=== PATIENT | female | born 1950 | race Caucasian/White ===

== ENCOUNTER 2021-06-08 17:52 | Emergency (ER) | payer MEDICARE ==
[2021-06-08 18:00] VITALS: BP 163/53
--- NOTE | 2021-06-08 18:00 | ED Physician Documentation ---
PD HPI UPPER EXT INJURY - Stated complaint Stated Complaint: RT FINGER LAC - Chief complaint Chief Complaint: Laceration - History obtained from History obtained from: Patient - History of Present Illness Location: Right, Finger (little finger lac/avulsion from cheese mandolin, with wound not wanting to stop bleeding. Bandaid at home and here for eval.) Where injury occurred: Home Timing - onset: How many minutes ago (30), Today Timing - details: Abrupt onset, Still present (still seemed to be bleeding through the bandaid.) Associated symptoms: No: Weakness, Numbness Contributing factors: No: Anticoagulated Similar symptoms before: Has not had sx before Review of Systems Skin: reports: Laceration (s) Neurologic: denies: Focal weakness, Numbness PD PAST MEDICAL HISTORY - Past Medical History Cardiovascular: None Respiratory: None - Allergies Allergies/Adverse Reactions: Allergies Allergy/AdvReac Type Severity Reaction Status Date / Time No Known Drug Allergies Allergy Verified 06/08/21 18:00 PD ED PE NORMAL - Vitals Vital signs reviewed: Yes - General General: Alert and oriented X 3, Well developed/nourished - Derm Derm: Normal color, Warm and dry - Extremities Extremities: Other (The right little finger distal phalanx palmar aspect with a 3 mm x 1 cm partial-thickness avulsion. No bleeding at this time and no foreign bodies. Does not involve the nailbed.) - Neuro Neuro: No motor deficit, No sensory deficit Results - Vitals Vitals: Vital Signs - 24 hr 06/08/21 17:56 Temperature 36.3 C L Heart Rate 58 L Respiratory 18 Rate Blood Pressure 163/53 H O2 Saturation 97 Oxygen O2 Source Room air Procedures - Laceration (location) right little finger Length in cm: 1 Wound type: Linear Neurovascular status: Sensory intact, Motor intact Tendon involvement: Tendon intact Wound preparation: Wound explored, To the base Skin layer closure: Dermabond, Steri strips (The wound was partial-thickness and not very wide. It was an avulsion but the edges could still be brought together a bit. Benzoin and Steri-Strips were used and then coated over with Dermabond. She states it did burn for a little bit and then improved.) Other: Tetanus booster given PD MEDICAL DECISION MAKING - ED course Complexity details: considered differential, d/w patient Departure - Departure Disposition: 01 Home, Self Care Clinical Impression: Laceration of little finger Qualifiers: Encounter type: initial encounter Damage to nail status: without damage Foreign body presence: without foreign body Laterality: right Qualified Code(s): S61.216A - Laceration without foreign body of right little finger without damage to nail, initial encounter Condition: Stable Record reviewed to determine appropriate education?: Yes Instructions: ED Avulsion Dermal Comments: The Steri-Strips and glue on it will help hold the edges a low bit closer for less bleeding. They should fall off on their own after few days. At that point typical wound care with cleaning soap and water and ointment. Recheck if signs of infection. Tylenol or ibuprofen if needed for pains. You were given a tetanus booster here.
[2021-06-08] MEDS ORDERED: ACETAMINOPHEN 325 MG TABLET PO STA (18:18)
[2021-06-08] MEDS ORDERED: LIDOCAINE OINTMENT 5% 35.44 GM TUBE TOP STA (18:18)
[2021-06-08] MEDS ORDERED: TETANUS/DIPHTHERIA/PERTUSSIS 0.5 ML SYRINGE IM ONE (18:18)
== END 2021-06-08 18:40 | disposition home or self-care (01) ==
LOC: ED 17:52
DX: S61.216A Laceration without foreign body of right little finger without damage to nail, initial encounter (principal); W27.4XXA Contact with kitchen utensil, initial encounter; Y92.009 Unspecified place in unspecified non-institutional (private) residence as the place of occurrence of the external cause; Z23 Encounter for immunization
CPT/HCPCS: 12001; 90471; 90715; 99282; 99283; A9270; 12011